=== PATIENT | female | born 1990 | race African-American/Black ===

== ENCOUNTER 2021-02-05 21:53 | Emergency (ER) | payer OTHER ==
[~2021-02-05] VITALS: Ht 162.6 cm; Wt 86.6 kg
[2021-02-05] MEDS ORDERED: METFORMIN HCL500 M3 PO (22:12)
[2021-02-05] MEDS ORDERED: HUMALOG100 UNIT/1 SUBQ (22:12)
[2021-02-05] MEDS ORDERED: NEURONTIN 300M300 M2 PO (22:12)
[2021-02-05] MEDS ORDERED: IBUPROFEN 800800 MG PO (23:32)
[2021-02-05] MEDS ORDERED: BACTRIM DS TAB1 EACH PO (23:32)
[2021-02-05] MEDS ORDERED: ZOFRAN ODT4 MG PO (23:32)
[2021-02-05 23:48] VITALS: BP 127/87
== END 2021-02-05 23:49 | disposition home or self-care (01) ==
LOC: M.ERS 21:53
DX: L03.311 Cellulitis of abdominal wall (principal); E11.9 Type 2 diabetes mellitus without complications; Z79.4 Long term (current) use of insulin